=== PATIENT | female | born 1990 | race Caucasian/White ===

== ENCOUNTER 2017-01-25 19:10 | Inpatient (IN) | payer MEDICAID ==
[~2017-01-25] VITALS: Ht 152.4 cm; Wt 87.7 kg
[2017-01-25 19:47] LABS: DAU SCREEN DISCLAIMER
[2017-01-25 20:03] VITALS: BP 128/80
[2017-01-25] MEDS ORDERED: OXYTOCIN 30U/ 0.9% NaCL 500ML 500 ML IV ONE (20:45)
[2017-01-25] MEDS: D5%-LACTATED RINGERS 1,000 ML IV SCH (20:45)
[2017-01-25] MEDS ORDERED: NEWBORN KIT ONE (20:47)
[2017-01-25] MEDS ORDERED: FENTANYL PF 100 MCG/2ML IV PRN (21:00)
[2017-01-25] MEDS ORDERED: PENICILLIN GK 5,000,000 UNITS in DEXTROSE 5% 100 ML IVPB ONE (21:00)
[2017-01-25] MEDS ORDERED: TERBUTALINE 1 MG/ML, 1ML IVPush PRN (21:00)
[2017-01-25] MEDS ORDERED: ONDANSETRON 2MG/ML, 2ML IVPush PRN (21:00)
[2017-01-25] MEDS ORDERED: CALCIUM CARBONATE 500 MG TAB.CHEW PO PRN (21:00)
[2017-01-25] MEDS ORDERED: FENTANYL PF 100 MCG/2ML IVPush PRN (21:00)
[2017-01-25] MEDS ORDERED: FENTANYL PF 100 MCG/2ML ONE (21:09)
[2017-01-25] MEDS: LACTATED RINGERS 1,000 ML IV SCH ×2 (21:17→23:37)
[2017-01-25] MEDS ORDERED: FENTANYL/BUPIV./NS/PF 250 ML EPIDCONT ONE ×2 (21:50→21:53)
[2017-01-25] MEDS ORDERED: LIDOCAINE/PF 1.5%-EPI 1:200K, 30ML ONE (21:53)
[2017-01-25] MEDS ORDERED: LIDOCAINE 1%, 20ML ONE (21:53)
[2017-01-25] MEDS ORDERED: BUPIVACAINE 0.25% ONE (21:53)
[2017-01-25] MEDS ORDERED: TERBUTALINE 1 MG/ML, 1ML ONE (22:39)
[2017-01-26] MEDS ORDERED: OXYTOCIN 30U/ 0.9% NaCL 500ML 500 ML ONE (00:47)
[2017-01-26] MEDS ORDERED: LIDOCAINE 1%, 20ML ONE (00:54)
[2017-01-26] MEDS ORDERED: MISOPROSTOL 200 MCG TABLET ONE (00:55)
[2017-01-26] MEDS: PENICILLIN GK 2,500,000 UNITS in DEXTROSE 5% 100 ML IVPB SCH ×4 (00:59→13:00)
[2017-01-26] MEDS ORDERED: LACTATED RINGERS 1,000 ML INTUTE SCH (03:00)
[2017-01-26] MEDS ORDERED: LACTATED RINGERS 1,000 ML INTUTE PRN (03:00)
[2017-01-26] MEDS: LACTATED RINGERS 1,000 ML IV SCH ×2 (03:08→08:21)
[2017-01-26] MEDS: D5%-LACTATED RINGERS 1,000 ML IV SCH ×3 (04:45→20:45)
[2017-01-26] MEDS ORDERED: ONDANSETRON 2MG/ML, 2ML ONE (05:02)
[2017-01-26] MEDS ORDERED: OXYTOCIN 30U/ 0.9% NaCL 500ML 500 ML IV PRN (07:33)
[2017-01-26] MEDS: OXYTOCIN 30U/ 0.9% NaCL 500ML 500 ML IV SCH ×2 (10:00→20:00)
[2017-01-26] MEDS ORDERED: ACETAMINOPHEN 325 MG TABLET PO PRN (10:00)
[2017-01-26] MEDS ORDERED: ONDANSETRON 2MG/ML, 2ML IV PRN (10:00)
[2017-01-26] MEDS ORDERED: MISOPROSTOL 200 MCG TABLET SL PRN (10:00)
[2017-01-26] MEDS ORDERED: IBUPROFEN 600 MG TABLET ONE (10:46)
[2017-01-26] MEDS ORDERED: OXYcodone/APAP 5/325MG TABLET ONE (10:46)
[2017-01-26] MEDS: IBUPROFEN 600 MG TABLET PO PRN ×3 (10:57→23:08)
[2017-01-26] MEDS: NICOTINE 14MG/24 HR PATCH.TD24 TD SCH ×2 (11:00→21:02)
[2017-01-26] MEDS: OXYcodone/APAP 5/325MG TABLET PO PRN ×2 (11:03→14:31)
[2017-01-26 12:00] VITALS: BP 123/79
[2017-01-26 16:45] VITALS: BP 135/82
[2017-01-26] MEDS: OXYcodone/APAP 10/325MG TABLET PO PRN ×2 (18:24→23:08)
[2017-01-26 20:00] VITALS: BP 112/73
[2017-01-26] MEDS: DOCUSATE 100 MG CAPSULE PO PRN (21:01)
[2017-01-27 00:18] VITALS: BP 111/73
[2017-01-27] MEDS: OXYcodone/APAP 10/325MG TABLET PO PRN ×4 (04:03→16:59)
[2017-01-27 04:06] VITALS: BP 111/69
[2017-01-27] MEDS: D5%-LACTATED RINGERS 1,000 ML IV SCH (04:45)
[2017-01-27] MEDS: LACTATED RINGERS 1,000 ML IV SCH (04:45)
[2017-01-27] MEDS: OXYTOCIN 30U/ 0.9% NaCL 500ML 500 ML IV SCH (06:00)
[2017-01-27] MEDS: IBUPROFEN 600 MG TABLET PO PRN ×2 (06:14→13:02)
[2017-01-27 08:20] VITALS: BP 112/63
[2017-01-27] MEDS: DOCUSATE 100 MG CAPSULE PO PRN (08:57)
[2017-01-27] MEDS ORDERED: PRENATAL VIT/IRON/FA 1 EACH TABLET PO SCH (09:00)
[2017-01-27] MEDS ORDERED: IBUP-1222 PO (15:49)
== END 2017-01-27 17:50 | disposition home or self-care (01) | DRG 775 ==
LOC: LDOP 19:10 → LDIP 20:48 → 2NW 01-26 12:01
PROVIDERS: ADMIT Obstetrics & Gynecology; ATTEND Obstetrics & Gynecology
PROC: 10E0XZZ Delivery of Products of Conception, External Approach (ICD-10-PCS; principal; 2017-01-26)
PROC: 0KQM0ZZ Repair Perineum Muscle, Open Approach (ICD-10-PCS; 2017-01-26)
PROC: 0W8NXZZ Division of Female Perineum, External Approach (ICD-10-PCS; 2017-01-26)
PROC: 00HU33Z Insertion of Infusion Device into Spinal Canal, Percutaneous Approach (ICD-10-PCS; 2017-01-26)
PROC: 3E0R3CZ (ICD-10-PCS; 2017-01-26)
DX: O69.81X0 Labor and delivery complicated by cord around neck, without compression, not applicable or unspecified (principal); Z37.0 Single live birth; O77.0 Labor and delivery complicated by meconium in amniotic fluid; Z23 Encounter for immunization
CPT/HCPCS: 36415; 80307; 81001; 85025; 86850; 86900; 87086; J2405; J2540; J3010; J3490; J2590; J7120

== ENCOUNTER 2017-11-28 18:25 | Emergency (ER) | payer MEDICAID ==
[~2017-11-28] VITALS: Ht 154.9 cm; Wt 65.5 kg
[~2017-11-28 18:25] MED LIST: IBUP-1222 PO
[2017-11-28] MEDS ORDERED: HYDROcodone/APAP 5/325 TABLET PO STA (19:19)
[2017-11-28] MEDS ORDERED: ONDANSETRON ODT 4 MG ONE (19:23)
[2017-11-28] MEDS ORDERED: HYDROcodone/APAP 5/325 TABLET ONE (19:23)
[2017-11-28] MEDS ORDERED: ONDANSETRON ODT 4 MG PO ONE (19:30)
[2017-11-28 19:54] VITALS: BP 110/57
== END 2017-11-28 20:23 | disposition home or self-care (01) ==
LOC: ED 19:45
DX: H60.501 Unspecified acute noninfective otitis externa, right ear (principal); F17.210 Nicotine dependence, cigarettes, uncomplicated
CPT/HCPCS: 99283; Q0162

== ENCOUNTER 2018-08-24 22:10 | Emergency (ER) | payer MEDICAID ==
[~2018-08-24] VITALS: Ht 154.9 cm; Wt 68.4 kg
[2018-08-24 22:20] VITALS: BP 125/58
[2018-08-24] MEDS ORDERED: AZITHROMYCIN 250 MG TABLET PO STA (22:41)
[2018-08-24] MEDS ORDERED: AZITHROMYCIN 250 MG TABLET ONE (22:47)
[2018-08-24] MEDS ORDERED: CEFTRIAXONE 250 MG ONE (22:47)
[2018-08-24] MEDS ORDERED: CEFTRIAXONE 250 MG IM ONE (23:00)
== END 2018-08-24 23:09 | disposition home or self-care (01) ==
LOC: ED 23:03
DX: H10.233 Serous conjunctivitis, except viral, bilateral (principal); A56.01 Chlamydial cystitis and urethritis; A54.01 Gonococcal cystitis and urethritis, unspecified; F17.200 Nicotine dependence, unspecified, uncomplicated
CPT/HCPCS: 96372; 99283; J0696

== ENCOUNTER 2019-10-13 01:48 | Emergency (ER) | payer MEDICAID ==
[~2019-10-13] VITALS: Ht 152.4 cm; Wt 71.6 kg
[2019-10-13 01:57] VITALS: BP 119/77
== END 2019-10-13 02:36 | disposition home or self-care (01) ==
LOC: ED 02:34
DX: K08.89 Other specified disorders of teeth and supporting structures (principal); F17.210 Nicotine dependence, cigarettes, uncomplicated
CPT/HCPCS: 99283